=== PATIENT | male | born 2000 | race Caucasian/White ===

== ENCOUNTER 2019-02-09 13:32 | Emergency (ER) | payer MEDICAID ==
[2019-02-09] MEDS ORDERED: cefTRIAXone 2 GM in Sodium Chloride 0.9% 50 ML IV ONE (14:17)
[2019-02-09] MEDS ORDERED: Bacitracin Oint 1 GM U/D Packet TOP ONE (15:21)
--- NOTE | 2019-02-09 15:27 | EDM.PDOC ---
ED HPI GENERAL MEDICAL PROBLEM - General Chief Complaint: Lower Extremity Injury/Pain Stated Complaint: SURGERY ON RT FOOT/CONCERNED ABOUT INFECTION Time Seen by Provider: 02/09/19 13:47 Source of Information: Reports: Patient, Family (Mom) History Limitations: Reports: No Limitations - History of Present Illness INITIAL COMMENTS - FREE TEXT/NARRATIVE: chief complaint: foot infection this is a 19 year old male presents to ER with his Mom, reports he had foot surgery on January 08, 2019 at [place], [place]. He had a tendon and bone repair/removed. He has since been on crutches, splint, cast, orthe boot. Last week had a bandage removed, today he noticed the incision was red, swollen and had little bubbles of fluid. By this afternoon, the bubble popped and now with scabs forming. He is also having a bit more pain, more swelling and fluids is leaking from the incision, when it has been dry previously. denies any fever or chills. Onset: Today Onset Date: 02/09/19 Duration: Getting Worse Location: Reports: Lower Extremity, Right Quality: Reports: Ache, Pressure Severity: Moderate Improves with: Reports: None Worsens with: Reports: Movement Context: Reports: Other (surgery 01/08/2019) Associated Symptoms: Reports: Fever/Chills Treatments TILER'S ASSISTANT: Reports: Acetaminophen - Related Data Allergies Allergy/AdvReac Type Severity Reaction Status Date / Time No Known Allergies Allergy Verified 02/09/19 13:47 Home Meds: Home Meds NK [No Known Home Meds] 02/09/19 [History] Past Medical History Musculoskeletal History: Reports: None - Past Surgical History HEENT Surgical History: Reports: Adenoidectomy, Tonsillectomy, Other (See Below) Other HEENT Surgeries/Procedures: chin (gland) surgery, bilat eardrums Musculoskeletal Surgical History: Reports: Other (See Below) Other Musculoskeletal Surgeries/Procedures:: right foot, Dermatological Surgical History: Reports: None Social & Family History - Tobacco Use Smoking Status *Q: Never Smoker Second Hand Smoke Exposure: No - Caffeine Use Caffeine Use: Reports: Soda, Tea - Recreational Drug Use Recreational Drug Use: No Review of Systems - Review of Systems Review Of Systems: See Below Constitutional: Reports: Other (increase foot pain and edema and drainage) Eyes: Reports: No Symptoms Ears: Reports: No Symptoms Nose: Reports: No Symptoms Mouth/Throat: Reports: No Symptoms Respiratory: Reports: No Symptoms Cardiovascular: Reports: No Symptoms GI/Abdominal: Reports: No Symptoms Skin: Reports: Rash, Erythema, Wound, Change in Color Neurological: Reports: No Symptoms Psychiatric: Reports: No Symptoms ED EXAM, GENERAL - Physical Exam Exam: See Below Exam Limited By: No Limitations General Appearance: Alert, WD/WN, No Apparent Distress Respiratory/Chest: Lungs Clear, Normal Breath Sounds Cardiovascular: Regular Rate, Rhythm, No Murmur Extremities: Pedal Edema (right), Limited Range of Motion (right foot, recent surgery), Increased Warmth (right foot with redness, edema and pain), Redness ( surgery incision wound edges with large scab area distal. leakage of serous fluid. wound culture taken from blistered area.) Neurological: No Motor/Sensory Deficits Psychiatric: Normal Affect, Normal Mood Skin Exam: Warm, Erythema (right foot), Increased Warmth (right foot), Wound/ Incision (right foot) Lymphatic: No Adenopathy Course - Orders/Labs/Meds Labs: Laboratory Tests 02/09/19 02/09/19 Range/Units 14:39 14:39 WBC 6.3 (4.5-11.0) K/uL RBC 5.28 (4.30-5.90) M/uL Hgb 15.8 H (12.0-15.0) g/dL Hct 44.5 (40.0-54.0) % MCV 84 (80-98) fL MCH 30 (27-31) pg MCHC 36 (32-36) % Plt Count 222 (150-400) K/uL Neut % (Auto) 52 (36-66) % Lymph % (Auto) 24 (24-44) % Nelson % (Auto) 12 H (2-6) % Eos % (Auto) 12 H (2-4) % Baso % (Auto) 1 (0-1) % Sodium 141 (140-148) mmol/L Potassium 3.8 (3.6-5.2) mmol/L Chloride 103 (100-108) mmol/L Carbon Dioxide 29 (21-32) mmol/L Anion Gap 9.2 (5.0-14.0) mmol/L BUN 13 (7-18) mg/dL Creatinine 1.0 (0.8-1.3) mg/dL Est Cr Clr Drug Dosing TNP Estimated GFR (MDRD) > 60 (>60) Glucose 90 (74-106) mg/dL Calcium 9.2 (8.5-10.1) mg/dL Total Bilirubin 0.4 (0.2-1.0) mg/dL AST 20 (15-37) U/L ALT 21 (12-78) U/L Alkaline Phosphatase 145 H (46-116) U/L Total Protein 7.3 (6.4-8.2) g/dL Albumin 4.0 (3.4-5.0) g/dL Globulin 3.3 (2.3-3.5) g/dL Albumin/Globulin Ratio 1.2 (1.2-2.2) Meds: Medications Discontinued Medications Generic Name Dose Route Start Last Admin Trade Name Freq PRN Reason Stop Dose Admin Bacitracin 1 dose 02/09/19 15:21 02/09/19 15:51 Bacitracin Oint 1 Gm TOP 02/09/19 15:22 Not Given ONETIME ONE Ceftriaxone Sodium 2 gm/ 50 mls @ 100 mls/hr 02/09/19 14:17 02/09/19 14:40 Sodium Chloride IV 02/09/19 14:46 100 mls/hr ONETIME ONE Administration - Re-Assessments/Exams Free Text/Narrative Re-Assessment/Exam: labs; WBC is normal range, wound culture pending meds; Rocephin 2 gram IV right foot; area of redness marked for further evaluation. will discharge to home, start antibiotics, follow up on Monday. sooner in ER if has any concerns. Departure - Departure Time of Disposition: 15:22 Disposition: Home, Self-Care 01 Condition: Good Clinical Impression: Cellulitis of foot, right - Discharge Information *PRESCRIPTION DRUG MONITORING PROGRAM REVIEWED*: Not Applicable *COPY OF PRESCRIPTION DRUG MONITORING REPORT IN PATIENT VI: Not Applicable Instructions: Cellulitis, Adult, [id number] Referrals: Jailene Fay PA [Primary Care Provider] - Forms: ED Department Discharge Care Plan Goals: Cellulitis right foot -daily dressing changes, elevated foot, may apply warm heat to foot for 20 mins every 2 hours. -take Keflex 500mg 4 times a day, example breakfast, lunch, supper, bedtime -wound culture pending -call Clinic on Monday for wound check Return to ER if has increase redness, pain, discharge, nausea, vomiting, fever, chills or not improved. - Problem List & Annotations (1) Cellulitis of foot, right SNOMED Code(s): 734475861 Code(s): L03.115 - CELLULITIS OF RIGHT LOWER LIMB Status: Acute Priority : High - Problem List Review Problem List Initiated/Reviewed/Updated: Yes - Assessment/Plan Plan: Cellulitis right foot -daily dressing changes, elevated foot, may apply warm heat to foot for 20 mins every 2 hours. -take Keflex 500mg 4 times a day, example breakfast, lunch, supper, bedtime -wound culture pending -call Clinic on Monday for wound check Return to ER if has increase redness, pain, discharge, nausea, vomiting, fever, chills or not improved.
== END 2019-02-09 15:52 | disposition home or self-care (01) ==
LOC: JP.ED 13:32
DX: L03.115 Cellulitis of right lower limb (principal)
CPT/HCPCS: 36415; 80053; 85025; 87070; 87205; 96365; 99283; J0696; J7050; 87077; 87186

== ENCOUNTER 2020-07-31 11:49 | Emergency (ER) | payer MEDICAID ==
--- NOTE | 2020-07-31 13:52 | EDM.PDOC ---
ED HPI GENERAL MEDICAL PROBLEM - General Chief Complaint: General Stated Complaint: CHEST PAIN A WEEK AGO Time Seen by Provider: 07/31/20 13:47 Source of Information: Reports: Patient History Limitations: Reports: No Limitations - History of Present Illness INITIAL COMMENTS - FREE TEXT/NARRATIVE: pt arrived with a history of chest pain one week ago. He is not having pain at this time. He is not feeling sob. He has good vital signs. Onset: Other (pt had the chest pain 1 week ago. ) Duration: Hour(s): Location: Reports: Chest Associated Symptoms: Reports: Other (pt is breathing comfotably at this time. He is having some jaw pain on the left. ) - Related Data Allergies Allergy/AdvReac Type Severity Reaction Status Date / Time No Known Allergies Allergy Verified 07/31/20 12:34 Home Meds: Home Meds NK [No Known Home Meds] 02/09/19 [History] Past Medical History Musculoskeletal History: Reports: None - Past Surgical History HEENT Surgical History: Reports: Adenoidectomy, Tonsillectomy, Other (See Below) Other HEENT Surgeries/Procedures: chin (gland) surgery, bilat eardrums Musculoskeletal Surgical History: Reports: Other (See Below) Other Musculoskeletal Surgeries/Procedures:: right foot, Dermatological Surgical History: Reports: None Social & Family History - Tobacco Use Tobacco Use Status *Q: Never Tobacco User - Caffeine Use Caffeine Use: Reports: Coffee, Tea - Recreational Drug Use Recreational Drug Use: No ED ROS GENERAL - Review of Systems Review Of Systems: See Below Constitutional: Reports: No Symptoms HEENT: Reports: Other (pain in the left jaw. ) Respiratory: Reports: No Symptoms Cardiovascular: Reports: No Symptoms Endocrine: Reports: No Symptoms GI/Abdominal: Reports: No Symptoms : Reports: No Symptoms Musculoskeletal: Reports: No Symptoms ED EXAM, GENERAL - Physical Exam Exam: See Below Free Text/Narrative:: pt arrived with a history of chest pain 1 week ago. He is pain free at this time. He has pain in the tmj area on the left. Exam Limited By: No Limitations General Appearance: Alert, Anxious Ears: Normal TMs Nose: Normal Inspection Throat/Mouth: Normal Inspection Head: Atraumatic Neck: Normal Inspection Respiratory/Chest: No Respiratory Distress Cardiovascular: Regular Rate, Rhythm GI/Abdominal: Soft, Non-Tender (Male) Exam: Deferred Rectal (Males) Exam: Deferred Back Exam: Normal Inspection Extremities: Normal Inspection Neurological: Alert, Oriented, Normal Cognition Course - Vital Signs Last Recorded V/S: Last Vital Signs Temp 35.4 C L 07/31/20 12:16 Pulse 61 07/31/20 12:45 Resp 16 07/31/20 12:45 BP 121/64 07/31/20 12:45 Pulse Ox 97 07/31/20 12:45 - Orders/Labs/Meds Orders: Active Orders 24 hr Category Date Time Status EKG Documentation Completion [RC] ASDIRECTED Care 07/31/20 13:47 Ordered EKG 12 Lead [EK] Routine Ther 07/31/20 13:47 Ordered - Re-Assessments/Exams Free Text/Narrative Re-Assessment/Exam: 07/31/20 13:53 pt is tender over the left tmj area. this appears to be a joint problem. He had a ekg Departure - Departure Time of Disposition: 13:54 Disposition: Home, Self-Care 01 Condition: Fair Clinical Impression: TMJ inflammation, Chest pain, muscular - Discharge Information Referrals: Jailene Fay PA [Primary Care Provider] - Care Plan Goals: moist heat to the left tmj tid, motrin 600mg tid for the next week. Sepsis Event Note (ED) - Evaluation Sepsis Screening Result: No Definite Risk - Focused Exam Vital Signs: Vital Signs Temp Pulse Resp BP Pulse Ox 07/31/20 12:45 61 16 121/64 97 07/31/20 12:16 35.4 C L 57 L 16 119/62 99 - My Orders Last 24 Hours: My Active Orders 07/31/20 13:47 EKG Documentation Completion [RC] ASDIRECTED EKG 12 Lead [EK] Routine - Assessment/Plan Last 24 Hours: My Active Orders 07/31/20 13:47 EKG Documentation Completion [RC] ASDIRECTED EKG 12 Lead [EK] Routine
== END 2020-07-31 14:05 | disposition home or self-care (01) ==
LOC: JP.ED 11:49
DX: R07.89 Other chest pain (principal); M26.69 Other specified disorders of temporomandibular joint
CPT/HCPCS: 93005; 93010; 99282; 99284-25